=== PATIENT | male | born 1980 | race Caucasian/White ===

== ENCOUNTER 2019-07-28 22:11 | Emergency (ER) | payer BC ==
--- NOTE | 2019-07-28 23:47 | EDM.PDOC ---
ED HPI GENERAL MEDICAL PROBLEM - General Chief Complaint: ENT Problem Stated Complaint: SINUS INFECTION Time Seen by Provider: 07/28/19 23:15 Source of Information: Reports: Patient - History of Present Illness INITIAL COMMENTS - FREE TEXT/NARRATIVE: The patient is a 39-year-old male who presents to the ER complaining of severe sinus nasal congestion. The patient states that this is been ongoing intermittently for the last several months. He gets severely congested in his nasal passages and cannot breathe through his nose. No coughing, no fevers, no facial swelling, no changes in vision, no trouble with gait, no unusual headaches, no other acute complaints. His primary care physician had put him on Augmentin but this did nothing for his symptomology. The patient is also tried some [id number] Vicks nasal spray without relief as well. sinus Pain Score (Numeric/FACES): 6 - Related Data Allergies Allergy/AdvReac Type Severity Reaction Status Date / Time No Known Allergies Allergy Verified 07/28/19 22:39 Home Meds: Home Meds Fluticasone Propionate [Flonase] 16 gm NASBOTH BID PRN 5 Days #1 bottle [Rx] Past Medical History - Past Health History Medical/Surgical History: Denies Medical/Surgical History - Past Surgical History GI Surgical History: Reports: Hernia Repair/Other Social & Family History - Family History Family Medical History: Noncontributory - Tobacco Use Smoking Status *Q: Never Smoker - Recreational Drug Use Recreational Drug Use: No ED ROS ENT - Review of Systems Review Of Systems: See Below (Positive for severe nasal congestion, negative for fevers, negative for visual changes, negative for headaches, negative for facial swelling, space all other Positives and pertinent negatives as per HPI. All other pertinent systems were reviewed and are negative) ED EXAM, ENT - Physical Exam Exam: See Below Text/Narrative:: Constitutional: No acute distress, Non-toxic appearance, sounds extremely nasally congested HEENT: Normocephalic, Atraumatic, pulls equal round reactive to light, EOMI, facial swelling, no periorbital edema, bilateral nasal turbinates are extremely edematous and swollen, no purulent discharge, oropharynx is clear Neck: Normal range of motion, No stridor, trachea midline Respiratory: No respiratory distress, No tachypnea Cardiovascular: Deferred Gastrointestinal: Deferred Genital / Urinary: Deferred Musculoskeletal: All four extremities present and atraumatic Back: FROM Integument: Warm, Dry, Color is ethnicity appropriate, No rash. Neuro: Alert, Awake, x3, cranial nerves grossly intact, no focal deficits noted Psych: Affect, Judgement, mood normal Course - Vital Signs Text/Narrative:: History and exam are consistent with bilateral nasal congestion -likely due to allergies versus some infectious type of process. At this time the patient does not have any type of unusual symptomology or prolonged does refractory to treatment that makes me think we have to work him up for brain masses, Julianne' s syndrome, etc. the patient will be given a prescription for Flonase and has been instructed to follow-up with his primary care physician. Last Recorded V/S: Last Vital Signs Temp 36.2 C 07/28/19 22:36 Pulse 86 07/28/19 22:36 Resp 18 07/28/19 22:36 BP 146/83 H 07/28/19 22:36 Pulse Ox 96 07/28/19 22:36 Departure - Departure Time of Disposition: 23:44 Disposition: Home, Self-Care 01 Condition: Good Clinical Impression: Nasal sinus congestion - Discharge Information Prescriptions: Fluticasone Propionate [Flonase] 16 gm NASBOTH BID PRN 5 Days #1 bottle PRN Reason: Congestion Instructions: Upper Respiratory Infection, Adult, [id number] Referrals: Siva Pope MD [Primary Care Provider] - Forms: ED Department Discharge Additional Instructions: Use the nasal spray as prescribed Follow-up with your doctor to determine if you need to see an wet chemistry analyst or not Sepsis Event Note - Evaluation Sepsis Screening Result: No Definite Risk - Focused Exam Vital Signs: Vital Signs Temp Pulse Resp BP Pulse Ox 07/28/19 22:36 36.2 C 86 18 146/83 H 96 Date Exam was Performed: 07/29/19 Time Exam was Performed: 03:11
== END 2019-07-29 00:04 | disposition home or self-care (01) ==
LOC: MW.ED 22:11
DX: R09.81 Nasal congestion (principal)
CPT/HCPCS: 99283

== ENCOUNTER 2023-01-16 11:25 | Emergency (ER) | payer BC | END 2023-01-16 12:17 | disposition home or self-care (01) | LOC: MW.ED 11:25 | DX: J32.9 Chronic sinusitis, unspecified (principal) | CPT/HCPCS: 99283 ==